=== PATIENT | male | born 2000 | race Caucasian/White ===

== ENCOUNTER 2024-01-11 08:26 | Emergency (ER) | payer MEDICAID ==
[~2024-01-11] VITALS: Ht 175.3 cm; Wt 151.0 kg
[2024-01-11 08:32] VITALS: O2SAT 98
[2024-01-11] MEDS ORDERED: NEOM1PAC6 TP (08:55)
[2024-01-11 09:50] VITALS: BP 138/87; PULSE 81; RESP 16; TEMP 98.4
== END 2024-01-11 10:57 | disposition home or self-care (01) ==
LOC: ER 08:26
DX: L29.9 Pruritus, unspecified (principal)
CPT/HCPCS: 99281